=== PATIENT | female | born 1960 | race Two or more races ===

== ENCOUNTER 2019-07-05 20:01 | Emergency (ER) | payer BC, SELFPAY ==
[~2019-07-05] VITALS: Ht 152.4 cm; Wt 58.2 kg
[2019-07-05] MEDS ORDERED: TRIUMEQ (20:26)
--- NOTE | 2019-07-05 20:27 | NUR ---
PT TO ED FOR PAIN, SWELLING AND "DARK SPOTS" X1 MONTH. PT ALSO REPORTS DECREASED SENSATION IN LLE. PT REPORTS USING METH 3 DAYS AGO. PT CONNECTED TO MONITORS. HTN 168/113, ALL OTHER VSS ON RA. NO NEEDS EXPRESSED. CALL LIGHT IN REACH. AWAITINNG EDMD ASSESSMENT.
--- NOTE | 2019-07-05 20:43 | NUR ---
pt to us.
[2019-07-05] MEDS ORDERED: ACETAMINOPHEN 325 MG TABLET ONE (20:46)
[2019-07-05] MEDS ORDERED: KETOROLAC 30 MG/1 ML ONE (20:46)
[2019-07-05] MEDS ORDERED: ACETAMINOPHEN 325 MG TABLET PO ONE (21:00)
[2019-07-05] MEDS ORDERED: KETOROLAC 30 MG/1 ML IM ONE (21:00)
[2019-07-05 21:11] VITALS: BP 160/93
--- NOTE | 2019-07-05 21:11 | NUR ---
PT BACK FROM CT, RESTING IN ROOM WTIH LIGHTS DIMMED. VSS. PT ADMINISTERED TYLENOL, BUT DECLINED TORADOL AT THIS TIME. PT EDUCATED THAT SHE MAY STILL HAVE TORADOL IF SHE CHANGES HER MIND. NO NEEDS EXPRESSED. AWAITING US RESULTS.
== END 2019-07-05 22:35 | disposition home or self-care (01) ==
LOC: ED 21:39
DX: G62.9 Polyneuropathy, unspecified (principal); M25.572 Pain in left ankle and joints of left foot; M79.662 Pain in left lower leg; F17.210 Nicotine dependence, cigarettes, uncomplicated; I10 Essential (primary) hypertension; Z90.49 Acquired absence of other specified parts of digestive tract
CPT/HCPCS: 99284